=== PATIENT | female | born 1995 | race Asian ===

== ENCOUNTER 2021-03-03 18:27 | Outpatient (CLI) | payer OTHER ==
[2021-03-03 19:33] LABS: PLATELET COUNT 257 K/uL (152-353)
[2021-03-03 20:27] LABS: POTASSIUM 3.9 mmol/L (3.6-5.2)
== END 2021-03-03 21:56 | disposition home or self-care (01) ==
LOC: LAB 18:27
PROVIDERS: ATTEND Nurse Practitioner Family
DX: Z00.00 Encounter for general adult medical examination without abnormal findings (principal); M54.40 Lumbago with sciatica, unspecified side; F32.9 Major depressive disorder, single episode, unspecified; F41.1 Generalized anxiety disorder; J32.9 Chronic sinusitis, unspecified; R53.83 Other fatigue; R53.81 Other malaise
CPT/HCPCS: 80053; 80061; 82306; 82607; 83036; 84439; 84443; 85027; 86140